=== PATIENT | female | born 2000 | race Caucasian/White ===

== ENCOUNTER → 2024-06-17 15:09 | Outpatient (CLI) | payer OTHER, MEDICAID, SELFPAY ==
[2024-06-17 19:41] LABS: Urine N gonorrhoeae NOT DETECTED
[2024-06-17 19:50] LABS: Urine Chlamydia NOT DETECTED
== END ==
PROVIDERS: PCP Midwife; Visit Provider Obstetrics & Gynecology
DX: Z34.81 Encounter for supervision of other normal pregnancy, first trimester (principal); Z3A.08 8 weeks gestation of pregnancy
CPT/HCPCS: 87491; 87591